=== PATIENT | male | born 1990 | race Caucasian/White ===

== ENCOUNTER 2018-02-12 02:59 | Emergency (ER) | payer OTHER ==
[2018-02-12 03:05] VITALS: TEMP 98.4
[2018-02-12] MEDS ORDERED: ACET/COD 300 MG/30 MG STARTER PACK 6 TAB BTL PO STA (03:17)
[2018-02-12] MEDS ORDERED: KETOROLAC 30 MG/ML 1 ML VIAL IM STA (03:17)
[2018-02-12] MEDS ORDERED: PENICILLIN VK 500MG STARTER 4 TAB BTL PO STA (03:17)
--- NOTE | 2018-02-12 03:19 | ED ---
ENT HPI - General Chief complaint: Dental/Oral Stated complaint: Dental Pain Time Seen by Provider: 02/12/18 03:10 Source: patient Mode of arrival: ambulatory Limitations: no limitations - History of Present Illness Initial comments: 27-year-old male patient presents to emergency department today for evaluation of left lower dental pain. Patient states he's been having this pain for the last 2 days. Patient states that a filling that fell out when he was eating yesterday he bit down on the tooth that started his pain. Patient denies any difficulty swallowing or any trismus. Denies a fever or chills. States that he woke up tonight with increased pain so decided to present here for further evaluation. Patient denies any swelling to the face or gums. Denies any drainage from around the tooth. Patient has not made a dentist appointment does not currently have dental insurance. Patient did take Avapro for an earlier in the day and it did not help with his symptoms. Patient has been using Anbesol and it has been improving the pain somewhat. Patient denies any recent rash, shortness breath, chest pain, abdominal pain, diarrhea, constipation, back pain, numbness, tingling, dizziness, weakness, hematuria, dysuria, urinary urgency, urinary frequency, headache, visual changes, or any other complaints. - Related Data Previous Rx's Medication Instructions Recorded Ibuprofen [Motrin] 600 mg PO Q8HR PRN #30 tab 02/12/18 Penicillin V Potassium [Pen Vee K] 500 mg PO Q6H #40 tablet 02/12/18 Allergies Allergy/AdvReac Type Severity Reaction Status Date / Time No Known Allergies Allergy Verified 02/12/18 03:18 Review of Systems ROS Statement: Those systems with pertinent positive or pertinent negative responses have been documented in the HPI. ROS Other: All systems not noted in ROS Statement are negative. Past Medical History Past Medical History: No Reported History Past Surgical History: Tonsillectomy Past Psychological History: No Psychological Hx Reported Smoking Status: Never smoker Past Alcohol Use History: Occasional Past Drug Use History: None Reported General Exam Limitations: no limitations General appearance: alert, in no apparent distress, other (This is a well- developed, well-nourished adult male patient in no acute distress. Vital signs upon presentation are temperature 98.4F, pulse 73, respirations 16, blood pressure 144/95, pulse ox 94% on room air.) Eye exam: Present: normal appearance, PERRL, EOMI. Absent: scleral icterus, conjunctival injection, periorbital swelling ENT exam: Present: normal oropharynx, mucous membranes moist, other (Patient has evidence of broken filling to tooth #18. There is no surrounding gingival erythema or swelling. No evidence of drainable abscess.). Absent: normal exam Neck exam: Present: normal inspection. Absent: tenderness, meningismus, lymphadenopathy Respiratory exam: Present: normal lung sounds bilaterally. Absent: respiratory distress, wheezes, rales, rhonchi, stridor Cardiovascular Exam: Present: regular rate, normal rhythm, normal heart sounds. Absent: systolic murmur, diastolic murmur, rubs, gallop, clicks GI/Abdominal exam: Present: soft, normal bowel sounds. Absent: distended, tenderness, guarding, rebound, rigid Neurological exam: Present: alert, oriented X3, CN II-XII intact Psychiatric exam: Present: normal affect, normal mood Skin exam: Present: warm, dry, intact, normal color. Absent: rash Course Vital Signs 02/12/18 03:00 Temperature 98.4 F Pulse Rate 73 Respiratory 16 Rate Blood Pressure 144/95 O2 Sat by Pulse 94 L Oximetry Medical Decision Making - Medical Decision Making 27-year-old male patient presented to the emergency department today for evaluation of left lower dental pain. Physical examination did reveal broken filling to tooth #18. Patient had no surrounding gingival erythema or swelling. No evidence of drainable abscess. Patient is afebrile. He'll be discharged home to follow-up with dentistry, he was given referrals for under insured patients. He will be treated with Toradol here in the department, given a Tylenol with codeine starter pack. He will be started on pen VK. With return parameters were discussed in detail. He verbalizes understanding and agrees this plan. Disposition Clinical Impression: Dental caries, Pain, dental Disposition: HOME SELF-CARE Condition: Good Instructions: Dental Caries (ED), Toothache (ED) Additional Instructions: Take medications as directed. Follow-up with dentistry as soon as possible. Return here immediately for any new, worsening, or concerning symptoms. Please follow up with the [facility] dental clinic. [facility] [place] [address]. Phone number for new patients or [phone] for existing patients. [facility]. Must pay for x-rays then services are free. Call for an appoitnment. Prescriptions: Ibuprofen [Motrin] 600 mg PO Q8HR PRN #30 tab PRN Reason: Pain Penicillin V Potassium [Pen Vee K] 500 mg PO Q6H #40 tablet Is patient prescribed a controlled substance at d/c from ED?: No Referrals: None,Stated [Primary Care Provider] - 1-2 days Time of Disposition: 03:18
[2018-02-12 03:35] VITALS: BP 141/84; PULSE 74; RESP 18
== END 2018-02-12 03:35 | disposition home or self-care (01) ==
LOC: EC 02:59
DX: K02.9 Dental caries, unspecified (principal)
CPT/HCPCS: 99283; 96372; J1885